=== PATIENT | male | born 1995 | race African-American/Black ===

== ENCOUNTER 2018-03-23 17:12 | Emergency (ER) | payer OTHER ==
[~2018-03-23] VITALS: Ht 185.4 cm; Wt 75.0 kg
[2018-03-23] MEDS ORDERED: NAPROSYN500 MG PO (19:41)
[2018-03-23] MEDS ORDERED: FLEXERIL10 MG PO (19:41)
[2018-03-23 20:24] VITALS: BP 136/86
== END 2018-03-23 20:23 | disposition home or self-care (01) ==
LOC: EME 17:12
DX: M62.838 Other muscle spasm (principal); M62.830 Muscle spasm of back; M54.2 Cervicalgia; M54.5 Low back pain; V49.40XA Driver injured in collision with unspecified motor vehicles in traffic accident, initial encounter; Y92.410 Unspecified street and highway as the place of occurrence of the external cause; F17.200 Nicotine dependence, unspecified, uncomplicated
CPT/HCPCS: 71101; 72040; 72100; 99281; 99283